=== PATIENT | female | born 1990 | race African-American/Black ===

== ENCOUNTER 2020-12-31 22:19 | Emergency (ER) | payer SELFPAY ==
[2021-01-01] MEDS ORDERED: predniSONE 20 MG TAB ONE (00:55)
== END 2021-01-01 03:47 | disposition left against medical advice (07) ==
LOC: ERS 22:19
DX: J45.901 Unspecified asthma with (acute) exacerbation (principal); Z79.52 Long term (current) use of systemic steroids
CPT/HCPCS: 94640; J7512; J7620

== ENCOUNTER 2021-04-09 08:57 | Emergency (ER) | payer SELFPAY ==
[2021-04-09] MEDS ORDERED: Albuterol Sulfate 2.5 mg/3 ml Neb ONE ×2 (09:08)
[2021-04-09] MEDS ORDERED: predniSONE 20 MG TAB ONE (09:09)
[2021-04-09] MEDS ORDERED: Ipratropium Bromide 2.5 ml Neb ONE (09:13)
== END 2021-04-09 09:50 | disposition home or self-care (01) ==
LOC: ERS 08:57
DX: J45.901 Unspecified asthma with (acute) exacerbation (principal)
CPT/HCPCS: 94640; J7512; J7611